=== PATIENT | male | born 1985 | race African-American/Black ===

== ENCOUNTER 2019-11-06 21:22 | Emergency (ER) | payer OTHER ==
[~2019-11-06] VITALS: Ht 172.7 cm; Wt 81.7 kg
[2019-11-06] MEDS ORDERED: PROAIR HFA8.5 GM (21:32)
[2019-11-06 22:17] LABS: ABSOLUTE NEUTROPHILS 10.4 thou/uL (1.4-8.2); BASOPHILS 0.4 % (0.0-2.0); EOSINOPHILS 1.2 % (0.0-3.0); HEMATOCRIT 42.6 % (42.0-52.0); HEMOGLOBIN 13.6 gm/dL (14.0-18.0); MCH 26.7 pg (26.0-34.0); MCV 83.6 fL (80.0-100.0); MONOCYTES 5.3 % (1.0-8.0); PLATELET COUNT 233 thou/uL (150-400); POLYS 80.1 % (36.0-66.0); RDW 15.2 % (10.5-14.5)
[2019-11-06] MEDS ORDERED: PREDNISONE 20 M20 MG PO ×3 (22:51→22:57)
[2019-11-07] MEDS ORDERED: MUCINEX DM ER1 EACH PO (02:45)
[2019-11-07] MEDS ORDERED: WIXELA 250-501 EACH INH (02:45)
[2019-11-07] MEDS ORDERED: PROAIR HFA8.5 GM INH (02:45)
[2019-11-07] MEDS ORDERED: TESSALON PERLE100 M1 PO (02:45)
[2019-11-07 03:10] VITALS: BP 162/83
== END 2019-11-07 03:15 | disposition still patient (30) ==
LOC: ER 21:22
PROVIDERS: Nurse Practitioner
DX: J45.901 Unspecified asthma with (acute) exacerbation (principal); J10.1 Influenza due to other identified influenza virus with other respiratory manifestations